=== PATIENT | female | born 1950 | race African-American/Black ===

== ENCOUNTER 2021-07-17 17:52 | Inpatient (IN) | payer MEDICARE, OTHER ==
[2021-07-17] VITALS (13 sets, daily range): BP systolic 95–147; BP diastolic 54–72
[~2021-07-17] VITALS: Ht 162.6 cm; Wt 80.9 kg
[~2021-07-17 17:52] MED LIST: HEPARIN SODIUM 1,000 UNIT/1ML VIAL IV ONE; NICARDIPINE 100MCG/ML 10ML VIAL (CATH LAB) IV ONE; NITROGLYCERIN 50MCG/ML 10ML VIAL (CATH LAB) IV ONE
[2021-07-17] MEDS ORDERED: ASPIRIN 81MG TABLET PO ONE (18:30)
[2021-07-17] MEDS ORDERED: FENTANYL CITRATE/PF 50MCG/ML 2ML VIAL IV ONE (18:30)
[2021-07-17] MEDS: NITROGLYCERIN 0.4MG TABLET SL SL PRN (18:45)
[2021-07-17 18:55] LABS: BASOPHILS % 0.7 % (0.0-2.0); EOSINOPHILS % 0.6 % (0.0-5.0); HEMATOCRIT. 35.6 % (36.0-48.0); HEMOGLOBIN. 11.9 g/dL (12.0-16.0); LYMPHOCYTES % 35.5 % (20.0-50.0); MEAN CORPUSCULAR HEMOGLOBIN 27.3 pg (28.0-32.0); MEAN CORPUSCULAR VOLUME 81.6 fL (81.0-99.0); MEAN PLATELET VOLUME 9.7 fl (7.4-10.4); NEUTROPHILS % 59.2 % (40.0-76.0); PLATELET 180 x1000/uL (130-400); RED BLOOD CELL COUNT 4.36 mill/uL (4.2-5.4); RED CELL DISTRIBUTION WIDTH 14.7 % (11.6-14.6)
[2021-07-17] MEDS ORDERED: HEPARIN 5000 UNITS/ML VIAL IV ONE (19:00)
[2021-07-17 19:04] LABS: CHLORIDE 114 mEq/L (98-107)
[2021-07-17] MEDS ORDERED: IOHEXOL-300 100 ML BOTTLE ONE (19:19)
[2021-07-17] MEDS ORDERED: MIDAZOLAM HCL 2 MG/2 ML VIAL ONE (19:19)
[2021-07-17] MEDS ORDERED: FENTANYL CITRATE/PF 50MCG/ML 2ML VIAL ONE (19:19)
[2021-07-17] MEDS ORDERED: IODIXANOL 320MG/ML 100 ML BOTTLE IV ONE (19:20)
[2021-07-17] MEDS ORDERED: LIDOCAINE HCL 1% 20ML VIAL (Pyxis) INJ ONE (19:20)
[2021-07-17] MEDS ORDERED: NITROGLYCERIN OINT 1GM/INCH UDPKT TD ONE (19:39)
[2021-07-17] MEDS ORDERED: VERAPAMIL HCL 2.5 MG/1 ML 2ML VIAL IV ONE (19:41)
[2021-07-17] MEDS ORDERED: TICAGRELOR 90 MG TABLET PO ONE (20:03)
[2021-07-17] MEDS ORDERED: MORPHINE SULFATE 2 MG/ML CPJ (NOT FOR IM USE) IV PRN (20:45)
[2021-07-17] MEDS ORDERED: ATROPINE SULFATE 1MG/10ML SYR IV PRN (20:45)
[2021-07-17] MEDS ORDERED: ACETAMINOPHEN 325MG TABLET PO PRN (20:45)
[2021-07-17] MEDS ORDERED: ONDANSETRON HCL 4MG/2ML INJ IV PRN (20:45)
[2021-07-17] MEDS ORDERED: METOPROLOL TARTRATE 25MG TABLET PO NR (20:56)
[2021-07-17] MEDS ORDERED: SODIUM CHL 0.45% + KCL 20MEQ/L 1,000 ML IV NR (21:30)
[2021-07-17] MEDS: ATORVASTATIN CALCIUM 40MG TABLET PO SCH (23:21)
[2021-07-18] VITALS (38 sets, daily range): BP systolic 98–139; BP diastolic 65–87
[2021-07-18] MEDS: NITROGLYCERIN 0.4MG TABLET SL SL PRN (04:42)
[2021-07-18 05:50] LABS: BASOPHILS % 0.6 % (0.0-2.0); HEMATOCRIT. 30.9 % (36.0-48.0); HEMOGLOBIN. 10.3 g/dL (12.0-16.0); LYMPHOCYTES % 19.5 % (20.0-50.0); MEAN CORPUSCULAR HEMOGLOBIN 27.2 pg (28.0-32.0); MEAN CORPUSCULAR VOLUME 81.1 fL (81.0-99.0); MEAN PLATELET VOLUME 9.9 fl (7.4-10.4); MONOCYTES % 4.2 % (2.0-8.0); NEUTROPHILS % 75.7 % (40.0-76.0); PLATELET 161 x1000/uL (130-400); RED BLOOD CELL COUNT 3.81 mill/uL (4.2-5.4)
[2021-07-18 06:01] LABS: CHLORIDE 113 mEq/L (98-107)
[2021-07-18] MEDS: ASPIRIN 325MG TABLET PO SCH (08:13)
[2021-07-18] MEDS: METOPROLOL TARTRATE 25MG TABLET PO SCH ×2 (08:13→20:48)
[2021-07-18] MEDS: CLOPIDOGREL 75MG TABLET PO SCH (08:13)
[2021-07-18] MEDS: ATORVASTATIN CALCIUM 40MG TABLET PO SCH (20:41)
[2021-07-19] VITALS (10 sets, daily range): BP systolic 87–123; BP diastolic 51–79
[2021-07-19] MEDS: ASPIRIN 325MG TABLET PO SCH (08:30)
[2021-07-19] MEDS: CLOPIDOGREL 75MG TABLET PO SCH (08:31)
[2021-07-19] MEDS: METOPROLOL TARTRATE 25MG TABLET PO SCH (08:31)
[2021-07-19] MEDS ORDERED: LIP40 PO (17:22)
[2021-07-19] MEDS ORDERED: ASPI-986 PO (17:22)
[2021-07-19] MEDS ORDERED: CLOP75TA15 PO (17:22)
[2021-07-19] MEDS ORDERED: METO25TA6 PO (17:22)
[2021-07-19] MEDS ORDERED: NALOXONE HCL 0.4MG/ML VIAL IV PRN (17:30)
== END 2021-07-19 17:15 | disposition home or self-care (01) | DRG 247 ==
LOC: ER 17:52 → CVICU 21:27 → 5EST 07-18 09:13
PROVIDERS: ADMIT Family Medicine; ATTEND Family Medicine
PROC: 027034Z Dilation of Coronary Artery, One Artery with Drug-eluting Intraluminal Device, Percutaneous Approach (ICD-10-PCS; principal; 2021-07-17)
PROC: 4A023N7 Measurement of Cardiac Sampling and Pressure, Left Heart, Percutaneous Approach (ICD-10-PCS; 2021-07-17)
PROC: B211YZZ Fluoroscopy of Multiple Coronary Arteries using Other Contrast (ICD-10-PCS; 2021-07-17)
PROC: B215YZZ Fluoroscopy of Left Heart using Other Contrast (ICD-10-PCS; 2021-07-17)
DX: I21.3 ST elevation (STEMI) myocardial infarction of unspecified site (principal); B19.20 Unspecified viral hepatitis C without hepatic coma; Z20.822 Contact with and (suspected) exposure to COVID-19; I25.10 Atherosclerotic heart disease of native coronary artery without angina pectoris; E78.5 Hyperlipidemia, unspecified; Z88.6 Allergy status to analgesic agent; Z82.49 Family history of ischemic heart disease and other diseases of the circulatory system; E66.9 Obesity, unspecified; Z68.30 Body mass index [BMI] 30.0-30.9, adult; R73.9 Hyperglycemia, unspecified; D64.9 Anemia, unspecified
CPT/HCPCS: 36415; 71045; 80048; 80053; 83735; 84484; 85025; 85347; 87426; 92941; 93005; 93306; 93458; 99291; C1725; C1760; C1769; C1874; C1887; C1893; J1644; J2250; J2405; J3010; J3480; J3490; Q9967; A4315; J8499